=== PATIENT | female | born 1945 | race Caucasian/White ===

== ENCOUNTER 2025-04-10 15:51 | Inpatient (IN) | payer MEDICARE ==
[~2025-04-10] VITALS: Ht 167.6 cm; Wt 64.9 kg
[2025-04-10] MEDS ORDERED: MORPHINE SULFATE INJ 2 MG/ML DISP.SYRIN ONE (16:08)
[2025-04-10] MEDS: MORPHINE SULFATE INJ 2 MG/ML DISP.SYRIN IV ONE (16:11)
[2025-04-10 16:29] LABS: PLATELET COUNT (AUTO) 266 K/uL (150-450); RED BLOOD CELL COUNT(AUTO) 4.38 MIL/uL (4.0-5.2); RED CELL DISTRIBUTION WIDTH 13.3 % (11.5-15.0); WHITE BLOOD COUNT (AUTO) 9.0 K/uL (4.3-11.0)
[2025-04-10 16:34] LABS: CALCIUM, SERUM 9.0 mg/dL (8.5-10.1); CREATININE 0.9 mg/dL (0.6-1.3); SODIUM SERUM 138.0 mmol/L (136-145); UREA NITROGEN, BLOOD 18.0 mg/dL (7-18)
[2025-04-10 16:40] LABS: ASPARTATE AMINOTRANSFERASE 18.0 U/L (15-37); TOTAL PROTEIN, SERUM 6.8 g/dL (6.4-8.2)
[2025-04-10 16:41] LABS: INR 1.07 (0.91-1.10)
[2025-04-10] MEDS ORDERED: VALS160T2 PO (17:18)
[2025-04-10 20:08] VITALS: BP 157/76; TEMP 98.1; O2SAT 97
[2025-04-10] MEDS: TRAZODONE 50 MG TABLET PO SCH (22:15)
[2025-04-10] MEDS: MORPHINE SULFATE INJ 2 MG/ML DISP.SYRIN IV PRN (22:15)
[2025-04-10] MEDS: IV NS 0.9% 1,000 ML IV PRN (22:58)
[2025-04-11] MEDS: ONDANSETRON HCL/PF 4 MG/2 ML VIAL IVP PRN (02:45)
[2025-04-11 06:18] LABS: PLATELET COUNT (AUTO) 248 K/uL (150-450); RED BLOOD CELL COUNT(AUTO) 3.85 MIL/uL (4.0-5.2); RED CELL DISTRIBUTION WIDTH 13.2 % (11.5-15.0); WHITE BLOOD COUNT (AUTO) 13.0 K/uL (4.3-11.0)
[2025-04-11 06:30] LABS: INR 1.07 (0.91-1.10)
[2025-04-11 06:37] LABS: CALCIUM, SERUM 8.6 mg/dL (8.5-10.1); CREATININE 0.8 mg/dL (0.6-1.3); PHOSPHORUS 3.5 mg/dL (2.5-4.9); SODIUM SERUM 135.0 mmol/L (136-145); UREA NITROGEN, BLOOD 17.0 mg/dL (7-18)
[2025-04-11] MEDS: PANTOPRAZOLE 40 MG VIAL IV SCH (08:36)
[2025-04-11 09:51] VITALS: BP 119/50; TEMP 98.1; O2SAT 95
[2025-04-11] MEDS ORDERED: ANESTHESIA TRAY IN PYXIS 1 EA TRAY MC ONE ×2 (13:22→19:14)
[2025-04-11] MEDS ORDERED: BUPIVACAINE 0.5 % PF 150 MG/30 ML VIAL ONE (13:22)
[2025-04-11] MEDS ORDERED: TRANEXAMIC ACID 1,000 MG/10 ML VIAL ONE (16:24)
[2025-04-11] MEDS ORDERED: BUPIVACAINE 0.25% 75 MG/30 ML VIAL ONE (16:24)
[2025-04-11] MEDS ORDERED: SEVOFLURANE 250 ML BOTTLE IH ONE (16:27)
[2025-04-11] MEDS ORDERED: MIDAZOLAM HCL 2 MG/2ML VIAL ONE (16:27)
[2025-04-11] MEDS ORDERED: FENTANYL PF 100MCG/2ML AMPUL ONE (16:27)
[2025-04-11] MEDS ORDERED: VASOPRESSIN INJ 20 UNIT/ML VIAL ONE (16:28)
[2025-04-11] MEDS ORDERED: HYDROMORPHONE 1 MG/1 ML DISP.SYRIN IV PRN (16:30)
[2025-04-11] MEDS: VALSARTAN 80 MG TABLET PO SCH (17:59)
[2025-04-11] MEDS ORDERED: HYDROMORPHONE 1 MG/1 ML DISP.SYRIN ONE (18:58)
[2025-04-11 19:30] VITALS: BP 146/71; TEMP 97.5; O2SAT 100
[2025-04-11 20:00] VITALS: BP_SYST 136; BP_SYST 137; BP_DIAS 66; TEMP 98.4; O2SAT 98
[2025-04-11 21:00] VITALS: BP 132/65; TEMP 98.4; O2SAT 98
[2025-04-11 22:00] VITALS: BP 138/70; TEMP 98.4; O2SAT 98
[2025-04-11 23:00] VITALS: BP 134/66; TEMP 98; O2SAT 98
[2025-04-12] VITALS: BP 140/78; TEMP 98.2; O2SAT 98
[2025-04-12] MEDS: CEFAZOLIN 2 GM in IV D5W 100 ML IV SCH (00:16)
[2025-04-12] MEDS ORDERED: CEFAZOLIN 1 GM VIAL IV SCH (01:00)
[2025-04-12 07:00] VITALS: BP 143/61; TEMP 97.7; O2SAT 97
[2025-04-12] MEDS: PANTOPRAZOLE 40 MG TABLET.DR PO SCH (08:18)
[2025-04-12 10:08] LABS: PLATELET COUNT (AUTO) 227 K/uL (150-450); RED BLOOD CELL COUNT(AUTO) 3.47 MIL/uL (4.0-5.2); RED CELL DISTRIBUTION WIDTH 13.2 % (11.5-15.0); WHITE BLOOD COUNT (AUTO) 12.5 K/uL (4.3-11.0)
[2025-04-12 16:00] VITALS: BP 144/63; TEMP 98.1; O2SAT 98
[2025-04-12] MEDS: ENOXAPARIN SODIUM 40 MG/0.4 ML DISP.SYRIN SQ SCH (17:29)
[2025-04-12 20:00] VITALS: BP 141/63; TEMP 97.9; O2SAT 96
[2025-04-13 08:00] VITALS: BP 147/73; TEMP 98.8; O2SAT 96
== END 2025-04-13 15:10 | DRG 482 ==
LOC: ER 15:55 → MED 19:42
PROVIDERS: ADMIT Nurse Practitioner Family; ATTEND Nurse Practitioner Acute Care
PROC: 0QS606Z Reposition Right Upper Femur with Intramedullary Internal Fixation Device, Open Approach (ICD-10-PCS; principal; 2025-04-11 16:30)
DX: S72.141A Displaced intertrochanteric fracture of right femur, initial encounter for closed fracture (principal); E87.6 Hypokalemia; I10 Essential (primary) hypertension; W18.30XA Fall on same level, unspecified, initial encounter; R73.9 Hyperglycemia, unspecified; Y93.9 Activity, unspecified; Y92.009 Unspecified place in unspecified non-institutional (private) residence as the place of occurrence of the external cause
CPT/HCPCS: 36415; 71045-TC; 73502; 73552; 80048-TC; 80076-TC; 83735-TC; 84100-TC; 85025-TC; 85610-TC; 85730-TC; 86850-TC; 93307-TC; 97110-TC; 97116-TC; 97530-TC; 97535-TC; A4217; A4223; A6209; A6223; A6253; C1713; G0378; J0690; J1100; J1171; J1650; J2250; J2270; J2405; J2470; J2704; J3010; J3490; J7030; J7060